=== PATIENT | female | born 1980 | race African-American/Black ===

== ENCOUNTER 2017-10-20 08:52 | Emergency (ER) | payer OTHER ==
[~2017-10-20] VITALS: Ht 167.6 cm; Wt 75.3 kg
[2017-10-20 09:00] VITALS: Ht 167.6 cm; Wt 75.3 kg
[2017-10-20 11:23] VITALS: BP 100/64
== END 2017-10-20 11:23 | disposition home or self-care (01) ==
LOC: ED 08:52
DX: R59.0 Localized enlarged lymph nodes (principal)
CPT/HCPCS: 87491; 87591

== ENCOUNTER 2018-02-20 19:07 | Emergency (ER) | payer OTHER ==
[2018-02-20 21:57] VITALS: BP 133/78
== END 2018-02-20 21:57 | disposition home or self-care (01) ==
LOC: ED 19:07
DX: S00.411A Abrasion of right ear, initial encounter (principal); H92.01 Otalgia, right ear; X58.XXXA Exposure to other specified factors, initial encounter; Y93.89 Activity, other specified; Y92.89 Other specified places as the place of occurrence of the external cause; Y99.8 Other external cause status

== ENCOUNTER 2019-11-11 16:16 | Emergency (ER) | payer OTHER ==
[~2019-11-11] VITALS: Ht 167.6 cm; Wt 71.7 kg
[2019-11-11 16:21] VITALS: Ht 167.6 cm; Wt 71.7 kg
[2019-11-11 16:45] VITALS: BP 112/63
== END 2019-11-11 16:45 | disposition home or self-care (01) ==
LOC: ED 16:16
DX: L72.3 Sebaceous cyst (principal)

== ENCOUNTER 2020-01-07 09:17 | Emergency (ER) | payer OTHER ==
[~2020-01-07] VITALS: Ht 167.6 cm; Wt 72.6 kg
[2020-01-07 09:23] VITALS: Ht 167.6 cm; Wt 72.6 kg
[2020-01-07 10:31] LABS: CALCIUM 8.8 mg/dL (8.5-10.1); CHLORIDE SERUM 104 mmol/L (98-107); CREATININE SERUM 0.9 mg/dL (0.6-1.0); GFR1 > 60 mL/min; GLUCOSE SERUM 78 mg/dL (74-106); POTASSIUM SERUM 4.3 mmol/L (3.5-5.1); SODIUM SERUM 140 mmol/L (136-145)
[2020-01-07 10:36] LABS: ALBUMIN 3.5 g/dL (3.4-5.0); ALKALINE PHOSPHATASE 38 U/L (46-116); ALT/SGPT 24 U/L (14-59); AST/SGOT 18 U/L (15-37); BILIRUBIN TOTAL 0.3 mg/dL (0.20-1.00); TOTAL PROTEIN, SERUM 7.4 g/dL (6.4-8.2)
[2020-01-07 10:40] LABS: FREE T4 1.17 ng/dL (0.76-1.46); FREE THYROXINE INDEX 3.9 ug/dL (1.4-4.5); T4(THYROXINE) 12.2 ug/dL (4.7-13.3)
[2020-01-07 10:45] LABS: microscopic required? YES; urine erythrocyte 1+ (NEGATIVE)
[2020-01-07 11:04] LABS: BASOPHIL % 0.5 % (0-2); PLATELET COUNT 316 x10^3mcL (130-400); RED CELL DISTRIBUTION WIDTH 21.5 % (11.5-14.5)
[2020-01-07 11:39] VITALS: BP 114/81
[2020-01-07 23:08] LABS: T3 TOTAL 1.44 ng/mL
== END 2020-01-07 11:39 | disposition home or self-care (01) ==
LOC: ED 09:17
PROVIDERS: Emergency Medicine
DX: N39.0 Urinary tract infection, site not specified (principal); R51 Headache; R11.0 Nausea; E05.90 Thyrotoxicosis, unspecified without thyrotoxic crisis or storm
CPT/HCPCS: 84439; Q0092; Q0162

== ENCOUNTER 2020-06-19 20:16 | Emergency (ER) | payer OTHER, SELFPAY ==
[~2020-06-19] VITALS: Ht 167.6 cm; Wt 76.2 kg
[2020-06-19 20:20] VITALS: Ht 167.6 cm; Wt 76.2 kg
[2020-06-19 20:58] VITALS: BP 109/71
== END 2020-06-19 20:58 | disposition home or self-care (01) ==
LOC: ED 20:16
DX: U07.1 COVID-19 (principal); B34.9 Viral infection, unspecified; E05.90 Thyrotoxicosis, unspecified without thyrotoxic crisis or storm
CPT/HCPCS: U0003